=== PATIENT | female | born 1960 | race Caucasian/White ===

== ENCOUNTER 2025-01-06 15:58 | Emergency (ER) | payer OTHER | END 2025-01-06 16:26 | disposition home or self-care (01) | LOC: ERS 15:58 | DX: S61.011A Laceration without foreign body of right thumb without damage to nail, initial encounter (principal); I10 Essential (primary) hypertension; W26.8XXA Contact with other sharp object(s), not elsewhere classified, initial encounter; Y93.G1 Activity, food preparation and clean up | CPT/HCPCS: 99282 ==

== ENCOUNTER 2025-03-18 16:21 | Inpatient (IN) | payer OTHER ==
[2025-03-18 17:33] LABS: #Basophils 0.06 10x3/uL (0.0-0.2); #Eosinophils 0.16 10x3/uL (0.0-0.7); #Monocytes 1.49 10x3/uL (0.11-0.59); #Neutrophils 13.32 10x3/uL (1.40-6.50); %Basophils 0.3 % (0.0-1.0); %Eosinophils 0.9 % (0.0-10.0); %Lymphocytes 19.0 % (21.0-51.0); %Monocytes 8.0 % (0.0-10.0); %Neutrophils 71.2 % (42.0-75.0); Hematocrit 38.2 % (36.0-47.0); Hemoglobin 12.8 g/dL (12.0-16.0); Mean Corpuscular Hemoglobin 30.5 pg (27.0-31.0); Mean Corpuscular Volume 91.2 fL (78.0-98.0); Platelet Count 384 10x3/uL (130-400); Red Blood Cell (RBC) Count 4.19 mill/uL (4.20-5.40); White Blood Cell (WBC) Count 18.69 10x3/uL (4.8-10.8)
[2025-03-18 17:46] LABS: ALT (SGPT) 22 U/L (Less than 34); AST (SGOT) 24 U/L (11-34); Albumin 3.4 g/dL (3.1-4.5); Alkaline Phosphatase 91 U/L (40-110); Anion Gap 11 mmol/L (10-20); BUN (Urea Nitrogen) 9 mg/dL (9.8-20.1); Bilirubin, Total 0.8 mg/dL (0.3-1.2); Calc. Creatinine Clearance 0 mL/min (70-130); Calcium 8.7 mg/dL (7.8-10.44); Carbon Dioxide 26 mmol/L (23-31); Chloride 101 mmol/L (98-107); Globulin 3.0 g/dL (2.4-3.5); Glucose 91 mg/dL (80-115); Potassium 3.9 mmol/L (3.5-5.1); Sodium 134 mmol/L (136-145)
[2025-03-18] MEDS ORDERED: Acetaminophen 325 MG TAB PO PRN (21:35)
[2025-03-18] MEDS ORDERED: VANCOMYCIN IVPB SCH (21:45)
[2025-03-18] MEDS ORDERED: SODIUM CHLORIDE 0.9% IVPB SCH (21:45)
[2025-03-18 23:50] VITALS: BMI 25.2
[2025-03-19] MEDS: Vancomycin 1.5 GM / NS 500ML VIAL-2-BAG IVPB SCH (00:08)
[2025-03-19] MEDS: Clindamycin/D5W 900 MG in Premix 1 BAG IVPB SCH (00:35)
[2025-03-19 02:24] LABS: Bacteria/HPF None Seen HPF (None Seen); Glucose, Urine (Dipstick) Normal (Negative); Leukocyte Negative Leu/uL (Negative); Protein, Urine (Dipstick) Negative (Neg-Trace); RBC/HPF 0-3 HPF (0-3); Specific Gravity, Urine 1.007 (1.002-1.036); WBC/HPF 0-3 HPF (0-3)
[2025-03-19 05:30] LABS: #Basophils 0.07 10x3/uL (0.0-0.2); #Eosinophils 0.12 10x3/uL (0.0-0.7); #Monocytes 1.20 10x3/uL (0.11-0.59); #Neutrophils 13.75 10x3/uL (1.40-6.50); %Basophils 0.4 % (0.0-1.0); %Eosinophils 0.7 % (0.0-10.0); %Lymphocytes 16.3 % (21.0-51.0); %Monocytes 6.6 % (0.0-10.0); %Neutrophils 75.4 % (42.0-75.0); Hematocrit 37.8 % (36.0-47.0); Hemoglobin 11.5 g/dL (12.0-16.0); Mean Corpuscular Hemoglobin 29.1 pg (27.0-31.0); Mean Corpuscular Volume 95.7 fL (78.0-98.0); Platelet Count 329 10x3/uL (130-400); Red Blood Cell (RBC) Count 3.95 mill/uL (4.20-5.40); White Blood Cell (WBC) Count 18.21 10x3/uL (4.8-10.8)
[2025-03-19 05:42] LABS: Vancomycin, Random 11.3 ug/mL (See Comment)
[2025-03-19 05:47] LABS: ALT (SGPT) 138 U/L (Less than 34); AST (SGOT) 392 U/L (11-34); Albumin 2.9 g/dL (3.1-4.5); Alkaline Phosphatase 160 U/L (40-110); Anion Gap 13 mmol/L (10-20); BUN (Urea Nitrogen) 7 mg/dL (9.8-20.1); Bilirubin, Total 1.4 mg/dL (0.3-1.2); Calc. Creatinine Clearance 81 mL/min (70-130); Calcium 8.0 mg/dL (7.8-10.44); Carbon Dioxide 20 mmol/L (23-31); Chloride 107 mmol/L (98-107); Globulin 2.4 g/dL (2.4-3.5); Glucose 91 mg/dL (80-115); Potassium 3.9 mmol/L (3.5-5.1); Sodium 136 mmol/L (136-145)
[2025-03-19] MEDS ORDERED: Galcanezumab-Gnlm [Emgality Pen] 120 MG/ML Pen.Injctr SC SCH (09:00)
[2025-03-19] MEDS ORDERED: CEVIMELINE HCL 30 MG PO SCH (09:00)
[2025-03-19] MEDS: Enoxaparin 40 MG (0.4 mL) SYRINGE SC SCH (09:15)
[2025-03-19] MEDS: Pantoprazole 40 MG DR.TAB PO SCH (09:15)
[2025-03-19] MEDS: Cyclobenzaprine 10 MG TAB PO SCH (09:16)
[2025-03-19] MEDS ORDERED: Iopamidol-370 76% 500 ML MDV (1 ML CHARGE) ONE (11:15)
[2025-03-19] MEDS: Ondansetron PF 4 MG/2 ML Vial IVP PRN (18:51)
[2025-03-19] MEDS: Vancomycin 1 GM in Premix 1 BAG IVPB SCH (18:52)
[2025-03-19] MEDS: Fioricet 325/50/40 mg Tablet PO PRN (22:17)
[2025-03-20 04:48] LABS: Vancomycin, Random 14.2 ug/mL (See Comment)
[2025-03-20 10:12] LABS: #Basophils 0.06 10x3/uL (0.0-0.2); #Eosinophils 0.31 10x3/uL (0.0-0.7); #Monocytes 1.18 10x3/uL (0.11-0.59); #Neutrophils 11.39 10x3/uL (1.40-6.50); %Basophils 0.4 % (0.0-1.0); %Eosinophils 2.0 % (0.0-10.0); %Lymphocytes 15.3 % (21.0-51.0); %Monocytes 7.7 % (0.0-10.0); %Neutrophils 74.0 % (42.0-75.0); Hematocrit 34.9 % (36.0-47.0); Hemoglobin 11.2 g/dL (12.0-16.0); Mean Corpuscular Hemoglobin 29.8 pg (27.0-31.0); Mean Corpuscular Volume 92.8 fL (78.0-98.0); Platelet Count 315 10x3/uL (130-400); Red Blood Cell (RBC) Count 3.76 mill/uL (4.20-5.40); White Blood Cell (WBC) Count 15.38 10x3/uL (4.8-10.8)
[2025-03-20 10:40] LABS: ALT (SGPT) 111 U/L (Less than 34); AST (SGOT) 79 U/L (11-34); Albumin 2.6 g/dL (3.1-4.5); Alkaline Phosphatase 143 U/L (40-110); Anion Gap 10 mmol/L (10-20); BUN (Urea Nitrogen) 5 mg/dL (9.8-20.1); Bilirubin, Total 0.7 mg/dL (0.3-1.2); Calc. Creatinine Clearance 91 mL/min (70-130); Calcium 8.2 mg/dL (7.8-10.44); Carbon Dioxide 21 mmol/L (23-31); Chloride 110 mmol/L (98-107); Globulin 2.8 g/dL (2.4-3.5); Glucose 103 mg/dL (80-115); Potassium 3.1 mmol/L (3.5-5.1); Sodium 138 mmol/L (136-145)
[2025-03-20] MEDS: diphenhydrAMINE 50 MG/ML VIAL IVP SCH (11:49)
[2025-03-21 03:42] LABS: #Basophils 0.03 10x3/uL (0.0-0.2); #Eosinophils 0.32 10x3/uL (0.0-0.7); #Monocytes 0.77 10x3/uL (0.11-0.59); #Neutrophils 7.15 10x3/uL (1.40-6.50); %Basophils 0.3 % (0.0-1.0); %Eosinophils 3.1 % (0.0-10.0); %Lymphocytes 20.3 % (21.0-51.0); %Monocytes 7.3 % (0.0-10.0); %Neutrophils 68.1 % (42.0-75.0); Hematocrit 36.9 % (36.0-47.0); Hemoglobin 11.8 g/dL (12.0-16.0); Mean Corpuscular Hemoglobin 29.9 pg (27.0-31.0); Mean Corpuscular Volume 93.7 fL (78.0-98.0); Platelet Count 354 10x3/uL (130-400); Red Blood Cell (RBC) Count 3.94 mill/uL (4.20-5.40); White Blood Cell (WBC) Count 10.49 10x3/uL (4.8-10.8)
[2025-03-21 04:05] LABS: ALT (SGPT) 91 U/L (Less than 34); AST (SGOT) 49 U/L (11-34); Albumin 2.7 g/dL (3.1-4.5); Alkaline Phosphatase 136 U/L (40-110); Anion Gap 13 mmol/L (10-20); BUN (Urea Nitrogen) 5 mg/dL (9.8-20.1); Bilirubin, Total 0.3 mg/dL (0.3-1.2); Calc. Creatinine Clearance 88 mL/min (70-130); Calcium 8.1 mg/dL (7.8-10.44); Carbon Dioxide 21 mmol/L (23-31); Chloride 110 mmol/L (98-107); Globulin 2.6 g/dL (2.4-3.5); Glucose 94 mg/dL (80-115); Potassium 3.1 mmol/L (3.5-5.1); Sodium 141 mmol/L (136-145)
[2025-03-21] MEDS: diphenhydrAMINE 50 MG/ML VIAL IVP SCH (05:09)
[2025-03-21] MEDS ORDERED: Magnesium 2 GM/50 ML(in water) 2 GM in Premix 1 BAG IVPB PRN (08:00)
[2025-03-21] MEDS ORDERED: PHOS-NAK 1 PKT PACK PO PRN (08:00)
[2025-03-21] MEDS ORDERED: Potassium Chloride 20 MEQ in Premix 1 BAG IVPB PRN (08:00)
[2025-03-21] MEDS: Ondansetron PF 4 MG/2 ML Vial IVP PRN (14:25)
[2025-03-21 14:28] VITALS: BMI 25.2
[2025-03-21] MEDS ORDERED: fentaNYL PF 100 MCG/2 ML SYRINGE ONE (16:03)
[2025-03-21] MEDS ORDERED: SUCCINYLCHOLINE/SOD CL,ISO/PF 200 MG/10 ML SYRINGE FS ONE (16:03)
[2025-03-21] MEDS ORDERED: Lidocaine 1% PF 5 ML VIAL ONE (16:03)
[2025-03-21] MEDS ORDERED: Ondansetron PF 4 MG/2 ML Vial ONE (16:13)
[2025-03-21] MEDS ORDERED: PROPOFOL 200 MG/20 ML VIAL ONE (16:35)
[2025-03-21] MEDS: Enoxaparin 40 MG (0.4 mL) SYRINGE SC SCH (20:30)
[2025-03-21] MEDS: diphenhydrAMINE 25 MG CAP PO SCH (21:38)
[2025-03-22 04:06] LABS: #Basophils Less than 0.03 10x3/uL (0.0-0.2); #Eosinophils Less than 0.03 10x3/uL (0.0-0.7); #Monocytes 0.21 10x3/uL (0.11-0.59); #Neutrophils 9.55 10x3/uL (1.40-6.50); %Basophils 0.2 % (0.0-1.0); %Eosinophils 0.0 % (0.0-10.0); %Lymphocytes 7.6 % (21.0-51.0); %Monocytes 2.0 % (0.0-10.0); %Neutrophils 89.4 % (42.0-75.0); Hematocrit 33.2 % (36.0-47.0); Hemoglobin 10.6 g/dL (12.0-16.0); Mean Corpuscular Hemoglobin 29.8 pg (27.0-31.0); Mean Corpuscular Volume 93.3 fL (78.0-98.0); Platelet Count 355 10x3/uL (130-400); Red Blood Cell (RBC) Count 3.56 mill/uL (4.20-5.40); White Blood Cell (WBC) Count 10.68 10x3/uL (4.8-10.8)
[2025-03-22 04:35] LABS: Anion Gap 13 mmol/L (10-20); BUN (Urea Nitrogen) 5 mg/dL (9.8-20.1); Calc. Creatinine Clearance 102 mL/min (70-130); Calcium 8.5 mg/dL (7.8-10.44); Carbon Dioxide 20 mmol/L (23-31); Chloride 110 mmol/L (98-107); Glucose 161 mg/dL (80-115); Potassium 3.1 mmol/L (3.5-5.1); Sodium 140 mmol/L (136-145)
[2025-03-22 04:36] LABS: CRP, High Sensitivity at Bryan 3.95 mg/dL (< or = 0.5)
[2025-03-22 08:18] VITALS: TEMP 98
[2025-03-22 10:30] VITALS: BP 131/67
[2025-03-22] MEDS ORDERED: Cephalexin 250 MG CAP PO SCH (12:00)
== END 2025-03-22 11:21 | disposition home or self-care (01) | DRG 872 ==
LOC: ERS 16:21 → PCU 21:35
PROVIDERS: ADMIT Internal Medicine; ATTEND Internal Medicine
PROC: 3E03329 Introduction of Other Anti-infective into Peripheral Vein, Percutaneous Approach (ICD-10-PCS; principal; 2025-03-21)
PROC: 0J9M0ZZ Drainage of Left Upper Leg Subcutaneous Tissue and Fascia, Open Approach (ICD-10-PCS; principal; 2025-03-21)
DX: A41.01 Sepsis due to Methicillin susceptible Staphylococcus aureus (principal); L03.116 Cellulitis of left lower limb; F33.9 Major depressive disorder, recurrent, unspecified; L02.416 Cutaneous abscess of left lower limb; R74.01 Elevation of levels of liver transaminase levels; M79.7 Fibromyalgia; I10 Essential (primary) hypertension; G25.81 Restless legs syndrome; K21.9 Gastro-esophageal reflux disease without esophagitis; Z79.899 Other long term (current) drug therapy
CPT/HCPCS: 36415; 71045; 80048; 80053; 80202; 81001; 82550; 83605; 85025; 86141; 87040; 87070; 87077; 87081; 87186; 87205; 96365; 96366; 96367; 97139; J0692; J0878; J1100; J1200; J1650; J2270; J2405; J2543; J2704; J3010; J3373; J3490; J7030; J7050; Q0162; Q9967